=== PATIENT | male | born 1955 | race Hispanic/Latino ===

== ENCOUNTER → 2023-12-18 | Outpatient (CLI) | payer OTHER ==
[~2023-12-18] MED LIST: ACET325C6 PO; AEC81 PO; GABA-529 PO; IOHEXOL 350 MG/ML 100ML INFUS..BTL IV ONE; METF-446 PO; METOPROLOL TARTRATE 1 MG/ML 5ML VIAL IV ONE; PANT40TA54 PO
== END | disposition home or self-care (01) ==
LOC: RAH 08:24
PROVIDERS: ATTEND Student in an Organized Health Care Education/Training Program
DX: R07.9 Chest pain, unspecified (principal)
CPT/HCPCS: 75574; J3490; Q9967